=== PATIENT | male | born 1960 | race Caucasian/White ===

== ENCOUNTER → 2019-02-04 | Outpatient (CLI) | payer BC ==
--- NOTE | 2019-02-05 07:14 | XR ---
EXAMINATION TYPE: XR lumbosacral spine min 4V DATE OF EXAM: 02/04/2019 CLINICAL HISTORY: pain COMPARISON: NONE TECHNIQUE: Frontal, lateral, and oblique images of the lumbar spine are obtained. FINDINGS: Curvature convex to the left. Moderate to severe multilevel degenerative disc disease and s pondylosis. Lower lumbar facet joint arthropathy. No fracture or malalignment. IMPRESSION: No acute fracture or dislocation is seen in the lumbar spine.ICD 10 NO FRACTURE, INITIAL EVALUATION
== END | disposition home or self-care (01) ==
LOC: RADXRYALE 16:41
PROVIDERS: ATTEND Physician Assistant Medical
DX: M54.41 Lumbago with sciatica, right side (principal); M54.42 Lumbago with sciatica, left side
CPT/HCPCS: 72110

== ENCOUNTER 2019-03-16 08:48 | Day surgery (SDC) | payer BC ==
[2019-03-09 17:30] VITALS: BMI 33.3
[~2019-03-16 08:48] MED LIST: LACTATED RINGERS 1,000 ML IV SCH
[2019-03-16 09:17] VITALS: TEMP 98.1
[2019-03-16] MEDS ORDERED: MIDAZOLAM 2 MG/2 ML VIAL ONE (10:02)
[2019-03-16] MEDS ORDERED: fentaNYL (PF) 50 MCG/ML 2 ML AMP ONE (10:02)
[2019-03-16] MEDS ORDERED: PROPOFOL 10 MG/ML 20 ML VIAL IV ONE (10:02)
--- NOTE | 2019-03-16 10:30 | P.PCN ---
Date of Procedure: 03/16/19 Description of Procedure: BRIEF HISTORY: Patient is a 59-year-old female presenting for outpatient colonoscopy for screening for malignant neoplasm colon. Last colonoscopy 10 years ago normal. Retroflexion. No change in bowel habits, blood per rectum or family history of colon cancer. PROCEDURE PERFORMED: Colonoscopy with polypectomy. PREOPERATIVE DIAGNOSIS: Screening for malignant neoplasm of the colon, last colonoscopy 10 years ago. ESTIMATED BLOOD LOSS: Minimal. IV sedation per Anesthesia. PROCEDURE: After informed consent was obtained, the patient, was brought into the endoscopy unit. IV sedation was administered by Anesthesia under continuous monitoring. Digital rectal examination was normal. Initially the Olympus CF-190 flexible video colonoscope was then inserted in the rectum, gradually advanced into the cecum without any difficulty. Careful examination was performed as the scope was gradually being withdrawn. Ileocecal valve and the appendiceal orifice were visualized and appeared normal. Prep was excellent. Mucosa of the cecum, ascending colon, transverse colon, descending colon, sigmoid colon, and rectum appeared normal. A few scattered sigmoid diverticula noted. 2 diminutive 2 mm polyps removed from the transverse colon with cold forcep polypectomy. Retroflexion was performed in the rectum and no lesions were seen. The patient tolerated the procedure well. IMPRESSION: Mild sigmoid diverticulosis. 2 diminutive transverse colon polyps removed with cold forceps. RECOMMENDATIONS: Findings of this examination were discussed with the patient and his . Okay to resume diet. Okay to resume medications. With pathology from polypectomies. Recommend repeat colonoscopy in 5-10 years pending pathology from polypectomies.
[2019-03-16 10:50] VITALS: BP 112/70; PULSE 56; RESP 18
== END 2019-03-16 10:55 | disposition home or self-care (01) ==
LOC: ORWHC2ENDO 08:48
PROVIDERS: ATTEND Internal Medicine
DX: Z12.11 Encounter for screening for malignant neoplasm of colon (principal); K63.5 Polyp of colon; K57.30 Diverticulosis of large intestine without perforation or abscess without bleeding; E78.5 Hyperlipidemia, unspecified; Z79.899 Other long term (current) drug therapy; Z72.0 Tobacco use; Z98.890 Other specified postprocedural states
CPT/HCPCS: 88305; 45380; J2250; J3010; J2704

== ENCOUNTER → 2022-04-17 | Outpatient (CLI) | payer BC ==
--- NOTE | 2022-04-17 11:02 | CT ---
EXAMINATION TYPE: CT angio head CT DLP: 2411 mGycm, Automated exposure control for dose reduction was used. DATE OF EXAM: 04/17/2022 10:56 AM COMPARISON: None. CLINICAL INDICATION:Male, 62 years old with history of Z82.3, E78.2; PHH, dizziness with family histo ry of aneurysms TECHNIQUE: Axially acquired helical CT angiogram of the head was obtained before and after the uneven tful administration of 100 cc of Isovue-370 intravenously. Axial images are supplemented with 3D galindo nstructions which were post-processed at an independent workstation. NASCET criteria used. FINDINGS: No evidence of acute intracranial hemorrhage, mass effect, or midline shift. The ventricles, sulci, a nd cisterns are unremarkable. The visualized portions of the internal carotid arteries, middle cerebral arteries, anterior cerebral arteries, and posterior cerebral arteries are patent. 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 The basilar and vertebral arteries are patent. The left vertebral artery is dominant. IMPRESSION: No evidence of high-grade stenosis or intracranial aneurysm.
== END | disposition home or self-care (01) ==
LOC: RADCTMAIN 09:23
PROVIDERS: ATTEND Family Medicine
DX: E78.2 Mixed hyperlipidemia (principal); Z82.3 Family history of stroke
CPT/HCPCS: 70496; Q9967

== ENCOUNTER → 2022-11-15 | Outpatient (CLI) | payer BC ==
--- NOTE | 2022-11-15 12:02 | XR ---
EXAMINATION TYPE: XR knee complete LT DATE OF EXAM: 11/15/2022 11:49 AM INDICATION: Patient age:Male; 62 years old; Reason for study: [id number] SHLD PAIN,KNEE PAIN; [facility]. COMPARISON: None. TECHNIQUE: The Left knee(s) was examined in 3 projections. Frontal, lateral and oblique. FINDINGS: No acute fracture or dislocation. No significant joint space narrowing or marginal spurri ng. Remote injury to the tibial tuberosity with well-corticated heterotopic ossification. No joint ef fusion or soft tissue swelling. IMPRESSION: 1. No acute osseous pathology. 2. Remote injury to the tibial tuberosity.
--- NOTE | 2022-11-15 12:03 | XR ---
EXAMINATION TYPE: XR shoulder complete LT DATE OF EXAM: 11/15/2022 11:49 AM INDICATION: Patient age:Male; 62 years old; Reason for study: [id number] SHLD PAIN,KNEE PAIN; COMPARISON: None TECHNIQUE: The left shoulder was examined in AP, internally rotated and scapular Y projections. . FINDINGS: No evidence of acute osseous pathology, joint dislocation, or soft tissue swelling. The remaining por tions of the visualized chest are unremarkable. IMPRESSION: No acute osseous pathology.
== END | disposition home or self-care (01) ==
LOC: RADXRYALE 11:24
PROVIDERS: ATTEND Physician Assistant
DX: M25.512 Pain in left shoulder (principal); M25.562 Pain in left knee